=== PATIENT | female | born 1985 | race Caucasian/White ===

== ENCOUNTER → 2017-11-01 | Outpatient (CLI) | payer OTHER ==
[~2017-11-01] MED LIST: DOXY-229 PO; ETON1VAG7 VG
== END ==
LOC: LAB 11:48
PROVIDERS: ATTEND Obstetrics & Gynecology
DX: R10.2 Pelvic and perineal pain (principal)
CPT/HCPCS: 87491; 87591

== ENCOUNTER → 2018-03-14 | Outpatient (REF) | payer OTHER ==
[2018-03-14 09:49] LABS: PLATELET COUNT, AUTOMATED 306 K/uL (150-450)
[2018-03-14 09:58] LABS: INR 0.92
== END ==
LOC: ZZSENDIN 09:13
PROVIDERS: ATTEND Physician Assistant
DX: R94.5 Abnormal results of liver function studies (principal)
CPT/HCPCS: 85025; 85610